=== PATIENT | female | born 1995 | race Caucasian/White ===

== ENCOUNTER 2024-04-11 23:22 | Emergency (ER) | payer OTHER ==
[~2024-04-11] VITALS: Ht 160 cm; Wt 92.0 kg
[2024-04-11 23:27] VITALS: BP 124/80; PULSE 85; RESP 20; TEMP 98.3; O2SAT 98
== END 2024-04-12 02:21 | disposition home or self-care (01) ==
LOC: ER 23:22
DX: M79.662 Pain in left lower leg (principal); F17.210 Nicotine dependence, cigarettes, uncomplicated